=== PATIENT | female | born 1995 | race Caucasian/White ===

== ENCOUNTER 2016-12-27 18:30 | Emergency (ER) | payer OTHER ==
[~2016-12-27] VITALS: Ht 162.6 cm; Wt 9.3 kg
[~2016-12-27 18:30] MED LIST: NOHOMEMEDS
[2016-12-27] MEDS ORDERED: FLEXERIL10 MG PO (19:34)
[2016-12-27] MEDS ORDERED: MOTRIN600 MG PO (19:34)
[2016-12-27 21:01] VITALS: BP 124/70
== END 2016-12-27 21:02 | disposition home or self-care (01) ==
LOC: EXP 18:30 → EME 18:30 → EXP 21:02
DX: M54.2 Cervicalgia (principal); M62.838 Other muscle spasm; S63.502A Unspecified sprain of left wrist, initial encounter; V49.40XA Driver injured in collision with unspecified motor vehicles in traffic accident, initial encounter
CPT/HCPCS: 72040; 73110; 99281; 99284